=== PATIENT | female | born 1965 | race Caucasian/White ===

== ENCOUNTER → 2018-08-28 | Outpatient (CLI) | payer OTHER ==
[2018-08-28 11:26] LABS: BASOPHILS # (AUTO) 0.04 x10^3/uL (0-0.1); BASOPHILS % (AUTO) 0 % (0-1); EOSINOPHILS # (AUTO) 0.22 x10^3/uL (0-0.4); EOSINOPHILS % (AUTO) 2 % (1-7); LYMPHOCYTES # (AUTO) 2.62 x10^3/uL (1-3.4); LYMPHOCYTES % (AUTO) 26 % (22-44); MD NO; MEAN CORPUSCULAR HEMOGLOBIN 31.1 pg (27.0-34.8); MEAN CORPUSCULAR HGB CONC 34.3 g/dL (32.4-35.8); MEAN CORPUSCULAR VOLUME 90.7 fL (80-100); MEAN PLATELET VOLUME 8.3 fL (7.4-10.4); MONOCYTES # (AUTO) 0.51 x10^3/uL (0.2-0.8); MONOCYTES % (AUTO) 5 % (2-9); NEUTROPHILS # (AUTO) 6.54 x10^3/uL (1.8-6.8); NEUTROPHILS % (AUTO) 66 % (42-75); PLATELET COUNT 244 x10^3/uL (130-400); RED BLOOD COUNT 4.81 x10^6/uL (3.82-5.3); RED CELL DISTRIBUTION WIDTH 14.5 % (9.6-15.2)
[2018-08-28 11:38] LABS: ALBUMIN 4.1 g/dL (3.4-5.0); ANION GAP 10 mmol/L (5-15); CALCIUM 10.1 mg/dL (8.5-10.1); CHLORIDE 103 mmol/L (98-107)
[2018-08-28 11:49] LABS: ALANINE AMINOTRANSFERASE 53 U/L (12-78); ALKALINE PHOSPHATASE 67 U/L (45-117); BILIRUBIN,TOTAL 0.8 mg/dL (0.2-1.0); CHOL/HDL RATIO 3.4; CHOLESTEROL, TOTAL 182 mg/dL (140-239); CREATININE 1.23 mg/dL (0.55-1.02); FREE T4 (FREE THYROXINE) 1.03 ng/dL (0.76-1.46); HDL CHOL % 30 % (28-40); HDL CHOLESTEROL (DIRECT) 54 mg/dL (40-60); HIGH-SENSITIVITY CRP 0.99 mg/dL (0.02-0.30); TOTAL PROTEIN 8.2 g/dL (6.4-8.2); TRIGLYCERIDES 444 mg/dL (50-200)
[2018-08-28 12:16] LABS: HEMOGLOBIN A1C 6.5 % (4.2-6.3)
== END | disposition home or self-care (01) ==
LOC: LAB 11:01
PROVIDERS: ATTEND Nurse Practitioner Family
DX: E78.5 Hyperlipidemia, unspecified (principal); I10 Essential (primary) hypertension; E03.9 Hypothyroidism, unspecified
CPT/HCPCS: 36415; 80053; 80061; 82043; 83036; 84439; 84443; 84481; 85025; 86141; 86376; 86800

== ENCOUNTER → 2018-09-25 | Outpatient (CLI) | payer OTHER | END | disposition home or self-care (01) | LOC: CFH 12:14 | PROVIDERS: ATTEND Family Medicine | DX: M16.0 Bilateral primary osteoarthritis of hip (principal) | CPT/HCPCS: 72190 ==

== ENCOUNTER → 2018-10-11 | Outpatient (CLI) | payer OTHER | END | disposition home or self-care (01) | LOC: CFH 12:53 | PROVIDERS: ATTEND Family Medicine | DX: Z12.39 Encounter for other screening for malignant neoplasm of breast (principal); R92.8 Other abnormal and inconclusive findings on diagnostic imaging of breast; R23.4 Changes in skin texture; R60.0 Localized edema | CPT/HCPCS: 76642; 77066; G0279 ==

== ENCOUNTER → 2018-10-22 | Outpatient (CLI) | payer OTHER | END | disposition home or self-care (01) | LOC: CVU 13:25 | PROVIDERS: ATTEND Family Medicine | DX: R68.89 Other general symptoms and signs (principal); E11.9 Type 2 diabetes mellitus without complications; E78.5 Hyperlipidemia, unspecified | CPT/HCPCS: 93922 ==

== ENCOUNTER 2019-04-16 06:01 | Inpatient (IN) | payer OTHER ==
[~2019-04-16] VITALS: Ht 160 cm; Wt 137.5 kg
[~2019-04-16 06:01] MED LIST: ALLO100T30 PO; ATOR10TA9 PO; CETI10TA18 PO; FA/V1CAP2 PO; FLUO10CA13 PO; GABA300C10 PO; GABA600T7 PO; HYDR12.517 PO; HYDR25TA6 PO; IBUP200T49 PO; LEVO125T PO; LEVO500T47 PO; LISI-170 PO; LORA10TA41 PO; NITR100C56 PO
[2019-04-16] MEDS ORDERED: LACTATED RINGERS 1,000 ML IV SCH (06:38)
[2019-04-16] MEDS ORDERED: LIDOCAINE-MPF 1%, 2ML ONE (06:41)
[2019-04-16] MEDS ORDERED: BUPIVACAINE/PF 0.25% ONE ×2 (06:52→11:36)
[2019-04-16] MEDS ORDERED: EPINEPHRINE 1 MG/ML, 1ML ONE (06:53)
[2019-04-16] MEDS ORDERED: INDIGO CARMINE 0.8%, 5ML ONE (06:53)
[2019-04-16] MEDS ORDERED: THROMBIN 5,000 UNIT VIAL TP ONE (06:53)
[2019-04-16] MEDS ORDERED: LIDOCAINE-MPF 1%, 2ML INFIL ONE (07:00)
[2019-04-16] MEDS ORDERED: MIDAZOLAM 1 MG/ML, 2ML ONE (07:18)
[2019-04-16] MEDS ORDERED: FENTANYL PF 250 MCG/5ML ONE ×2 (07:18→08:37)
[2019-04-16] MEDS ORDERED: GABA100C PO ×2 (07:26)
[2019-04-16] MEDS ORDERED: ROSU10TA2 PO (07:26)
[2019-04-16] MEDS ORDERED: MULT-257 PO (07:26)
[2019-04-16] MEDS ORDERED: LABETALOL 5MG/ML, 20ML IV PRN (07:30)
[2019-04-16] MEDS ORDERED: LORazepam 2 MG/ML, 1ML IVPush PRN (07:30)
[2019-04-16] MEDS ORDERED: hydrALAzine 20 MG/ML, 1ML IV PRN (07:30)
[2019-04-16] MEDS ORDERED: ONDANSETRON ODT 8 MG PO PRN (07:30)
[2019-04-16] MEDS ORDERED: OXYcodone 5 MG/5 ML ORAL.SOL UDC PO PRN (07:30)
[2019-04-16] MEDS ORDERED: ONDANSETRON 2MG/ML, 2ML IV PRN ×2 (07:30→15:30)
[2019-04-16] MEDS ORDERED: PROMETHAZINE 25 MG/ML, 1ML IV PRN (07:30)
[2019-04-16] MEDS ORDERED: ACETAMINOPHEN 325 MG TABLET PO PRN (07:30)
[2019-04-16] MEDS ORDERED: FENTANYL PF 100 MCG/2ML IV PRN (07:30)
[2019-04-16] MEDS ORDERED: AMPICILLIN/SULBACTAM 3 GM ONE (07:33)
[2019-04-16] MEDS ORDERED: CEFAZOLIN 1,000 MG ONE (08:37)
[2019-04-16] MEDS ORDERED: GLYCOPYRROLATE 0.2MG/1ML, 5ML ONE (08:37)
[2019-04-16] MEDS ORDERED: PROPOFOL 10 MG/ML, 20ML ONE (08:37)
[2019-04-16] MEDS ORDERED: ROCURONIUM 10MG/ML,5ML ONE (08:37)
[2019-04-16] MEDS ORDERED: DEXAMETHASONE 4 MG/ML, 1ML ONE (08:37)
[2019-04-16] MEDS ORDERED: SUCCINYLCHOLINE 20 MG/ML, 10ML ONE (08:37)
[2019-04-16] MEDS ORDERED: NEOSTIGMINE 1 MG/ML, 10ML ONE (08:37)
[2019-04-16] MEDS ORDERED: ONDANSETRON 2MG/ML, 2ML ONE (08:37)
[2019-04-16] MEDS ORDERED: FENTANYL PF 100 MCG/2ML ONE (10:44)
[2019-04-16] MEDS ORDERED: SUGAMMADEX 200 MG/2 ML IVPush ONE ×2 (11:07)
[2019-04-16] MEDS: HYDROmorphone 2 MG/ML, 1ML IVPush PRN ×3 (12:36→13:02)
[2019-04-16] MEDS ORDERED: HYDROmorphone 1 MG/ML, 1ML VIAL ONE (12:36)
[2019-04-16] MEDS ORDERED: APIXABAN 5 MG TABLET PO ONE (14:30)
[2019-04-16 14:46] VITALS: BP 128/82
[2019-04-16 14:47] LABS: ANION GAP 11 mmol/L (5-15); CALCIUM 9.5 mg/dL (8.5-10.1); CHLORIDE 105 mmol/L (98-107); CREATININE 1.43 mg/dL (0.55-1.02)
[2019-04-16] MEDS ORDERED: HYDROmorphone 1 MG/ML, 1ML INJ IV PRN (15:30)
[2019-04-16] MEDS: OXYcodone IR 5MG TABLET PO PRN (16:08)
[2019-04-16] MEDS: ACETAMINOPHEN 500 MG TABLET PO SCH ×2 (16:08→23:32)
[2019-04-16] MEDS: D5%-LACTATED RINGERS 1,000 ML IV SCH ×2 (16:08→23:32)
[2019-04-16 19:23] VITALS: BP 118/78
[2019-04-16] MEDS: GABAPENTIN 300 MG CAPSULE PO SCH (21:10)
[2019-04-16 23:32] VITALS: BP 121/79
[2019-04-17 04:08] VITALS: BP 126/80
[2019-04-17] MEDS: LEVOTHYROXINE 125 MCG TABLET PO SCH (05:41)
[2019-04-17 05:49] LABS: CHLORIDE 102 mmol/L (98-107)
[2019-04-17 05:53] LABS: ANION GAP 9 mmol/L (5-15); CALCIUM 9.3 mg/dL (8.5-10.1); CREATININE 1.27 mg/dL (0.55-1.02)
[2019-04-17 07:33] VITALS: BP 156/81
[2019-04-17] MEDS: D5%-LACTATED RINGERS 1,000 ML IV SCH ×2 (07:45→16:18)
[2019-04-17] MEDS: HYDROCHLOROTHIAZIDE 25 MG TABLET PO SCH (08:28)
[2019-04-17] MEDS: ACETAMINOPHEN 500 MG TABLET PO SCH ×3 (08:28→23:30)
[2019-04-17] MEDS: FLUOXETINE HCL 20 MG CAPSULE PO SCH (08:28)
[2019-04-17] MEDS: ALLOPURINOL 100 MG TABLET PO SCH (08:28)
[2019-04-17] MEDS: LISINOPRIL 10 MG TABLET PO SCH (08:28)
[2019-04-17] MEDS: GABAPENTIN 100 MG CAPSULE PO SCH (08:28)
[2019-04-17] MEDS: OXYcodone IR 5MG TABLET PO PRN ×4 (08:28→21:23)
[2019-04-17 20:09] VITALS: BP 97/64
[2019-04-17] MEDS: GABAPENTIN 300 MG CAPSULE PO SCH (21:23)
[2019-04-18] MEDS: D5%-LACTATED RINGERS 1,000 ML IV SCH (00:20)
[2019-04-18 02:02] VITALS: BP 102/69
[2019-04-18] MEDS: OXYcodone IR 5MG TABLET PO PRN ×3 (03:15→20:54)
[2019-04-18] MEDS: LEVOTHYROXINE 125 MCG TABLET PO SCH (06:24)
[2019-04-18 07:29] VITALS: BP 111/68
[2019-04-18] MEDS ORDERED: FUROSEMIDE 20 MG/2 ML IV SCH (07:30)
[2019-04-18] MEDS: LISINOPRIL 10 MG TABLET PO SCH (07:46)
[2019-04-18] MEDS: HYDROCHLOROTHIAZIDE 25 MG TABLET PO SCH (07:46)
[2019-04-18] MEDS: ACETAMINOPHEN 500 MG TABLET PO SCH ×3 (07:46→23:30)
[2019-04-18] MEDS: GABAPENTIN 100 MG CAPSULE PO SCH (07:47)
[2019-04-18] MEDS: FLUOXETINE HCL 20 MG CAPSULE PO SCH (07:47)
[2019-04-18] MEDS: ALLOPURINOL 100 MG TABLET PO SCH (07:47)
[2019-04-18 15:02] VITALS: BP 100/61
[2019-04-18 16:38] LABS: ANION GAP 7 mmol/L (5-15); CALCIUM 8.6 mg/dL (8.5-10.1); CHLORIDE 101 mmol/L (98-107); CREATININE 1.29 mg/dL (0.55-1.02)
[2019-04-18 19:30] VITALS: BP 97/62
[2019-04-18] MEDS: GABAPENTIN 300 MG CAPSULE PO SCH (20:39)
[2019-04-19 01:56] VITALS: BP 114/72
[2019-04-19] MEDS: OXYcodone IR 5MG TABLET PO PRN ×2 (04:07→11:55)
[2019-04-19] MEDS: LEVOTHYROXINE 125 MCG TABLET PO SCH (06:33)
[2019-04-19 08:00] VITALS: BP 115/71
[2019-04-19] MEDS: ACETAMINOPHEN 500 MG TABLET PO SCH (08:25)
[2019-04-19] MEDS: GABAPENTIN 100 MG CAPSULE PO SCH (08:25)
[2019-04-19] MEDS: ALLOPURINOL 100 MG TABLET PO SCH (08:26)
[2019-04-19] MEDS: LISINOPRIL 10 MG TABLET PO SCH (08:26)
[2019-04-19] MEDS: HYDROCHLOROTHIAZIDE 25 MG TABLET PO SCH (08:26)
[2019-04-19] MEDS: FLUOXETINE HCL 20 MG CAPSULE PO SCH (08:26)
[2019-04-19 13:56] VITALS: BP 97/66
[2019-04-19] MEDS ORDERED: DOCU-131 PO (14:35)
[2019-04-19] MEDS ORDERED: OXYC5TAB3 PO (15:56)
== END 2019-04-19 16:10 | disposition home or self-care (01) | DRG 660 ==
LOC: ORIP 06:01 → EDSTATUS 07:30 → 4NE 14:39 → DCLOUNGE 04-19 16:05
PROVIDERS: ADMIT Urology; ATTEND Urology
PROC: 8E0W4CZ Robotic Assisted Procedure of Trunk Region, Percutaneous Endoscopic Approach (ICD-10-PCS; 2019-04-16)
PROC: 0TP5X0Z Removal of Drainage Device from Kidney, External Approach (ICD-10-PCS; 2019-04-16)
PROC: 0TB14ZZ Excision of Left Kidney, Percutaneous Endoscopic Approach (ICD-10-PCS; principal; 2019-04-16 07:30)
DX: N13.6 Pyonephrosis (principal); Z68.43 Body mass index [BMI] 50.0-59.9, adult; I10 Essential (primary) hypertension; E66.01 Morbid (severe) obesity due to excess calories; G89.29 Other chronic pain; E78.5 Hyperlipidemia, unspecified; Z93.6 Other artificial openings of urinary tract status
CPT/HCPCS: 36415; J3490; J7121; 80048; 85014; 85018; 86850; 86900; 88307; 93005; C1729; G0378; J0171; J0295; J0690; J1100; J1170; J2250; J2405; J2704; J2710; J3010; C1760; J0330; J1940; J7120

== ENCOUNTER → 2019-06-05 | Outpatient (CLI) | payer OTHER ==
[~2019-06-05] MED LIST changes: +DOCU-131 PO; +GABA100C PO; +MULT-257 PO; +OXYC5TAB3 PO; +ROSU10TA2 PO
[2019-06-05 10:41] LABS: CREATININE 1.25 mg/dL (0.55-1.02)
== END | disposition home or self-care (01) ==
LOC: RAD 09:57
PROVIDERS: ATTEND Family Medicine
DX: K76.9 Liver disease, unspecified (principal); R16.0 Hepatomegaly, not elsewhere classified; M47.816 Spondylosis without myelopathy or radiculopathy, lumbar region; E11.9 Type 2 diabetes mellitus without complications; Z90.5 Acquired absence of kidney
CPT/HCPCS: 36415; 74160; 82565

== ENCOUNTER → 2019-07-17 | Outpatient (CLI) | payer OTHER ==
[2019-07-17 11:27] LABS: BASOPHILS # (AUTO) 0.05 x10^3/uL (0-0.1); BASOPHILS % (AUTO) 1 % (0-1); EOSINOPHILS # (AUTO) 0.22 x10^3/uL (0-0.4); EOSINOPHILS % (AUTO) 3 % (1-7); LYMPHOCYTES # (AUTO) 2.31 x10^3/uL (1-3.4); LYMPHOCYTES % (AUTO) 29 % (22-44); MD NO; MEAN CORPUSCULAR HEMOGLOBIN 29.8 pg (27.0-34.8); MEAN CORPUSCULAR HGB CONC 33.6 g/dL (32.4-35.8); MEAN CORPUSCULAR VOLUME 88.9 fL (80-100); MEAN PLATELET VOLUME 8.3 fL (7.4-10.4); MICROSCOPIC NOT IND; MONOCYTES % (AUTO) 5 % (2-9); NEUTROPHILS # (AUTO) 4.93 x10^3/uL (1.8-6.8); NEUTROPHILS % (AUTO) 62 % (42-75); PLATELET COUNT 240 x10^3/uL (130-400); RED BLOOD COUNT 4.94 x10^6/uL (3.82-5.3); RED CELL DISTRIBUTION WIDTH 14.4 % (9.6-15.2)
[2019-07-17 11:39] LABS: ALBUMIN 4.1 g/dL (3.4-5.0); ANION GAP 9 mmol/L (5-15); CALCIUM 9.9 mg/dL (8.5-10.1); CHLORIDE 108 mmol/L (98-107); CHOLESTEROL, TOTAL 190 mg/dL (140-239); CREATININE 1.34 mg/dL (0.55-1.02)
[2019-07-17 11:41] LABS: CHOL/HDL RATIO 4.4; HDL CHOL % 23 % (28-40); HDL CHOLESTEROL (DIRECT) 43 mg/dL (40-60); TRIGLYCERIDES 494 mg/dL (50-200)
[2019-07-17 11:56] LABS: CALCIUM 9.9 mg/dL (8.5-10.1)
[2019-07-17 13:33] LABS: ANION GAP 13 mmol/L (5-15); CALCIUM 10.2 mg/dL (8.5-10.1); CHLORIDE 109 mmol/L (98-107); CREATININE 1.31 mg/dL (0.55-1.02)
== END | disposition home or self-care (01) ==
LOC: LAB 11:01
PROVIDERS: ATTEND Urology
DX: I12.9 Hypertensive chronic kidney disease with stage 1 through stage 4 chronic kidney disease, or unspecified chronic kidney disease (principal); E11.22 Type 2 diabetes mellitus with diabetic chronic kidney disease; N18.3 Chronic kidney disease, stage 3 (moderate); Q60.0 Renal agenesis, unilateral
CPT/HCPCS: 36415; 80048; 80061; 80069; 81003; 82043; 82306; 82310; 82570; 83036; 83735; 83970; 84156; 84550; 85025

== ENCOUNTER 2020-01-02 10:54 | Outpatient (CLI) | payer OTHER ==
[2020-01-02 11:28] LABS: BASOPHILS # (AUTO) 0.05 x10^3/uL (0-0.1); BASOPHILS % (AUTO) 1 % (0-1); EOSINOPHILS % (AUTO) 3 % (1-7); LYMPHOCYTES # (AUTO) 2.15 x10^3/uL (1-3.4); LYMPHOCYTES % (AUTO) 29 % (22-44); MD NO; MEAN CORPUSCULAR HEMOGLOBIN 29.8 pg (27.0-34.8); MEAN CORPUSCULAR HGB CONC 32.7 g/dL (32.4-35.8); MEAN PLATELET VOLUME 8.4 fL (7.4-10.4); MONOCYTES # (AUTO) 0.41 x10^3/uL (0.2-0.8); MONOCYTES % (AUTO) 6 % (2-9); NEUTROPHILS # (AUTO) 4.73 x10^3/uL (1.8-6.8); NEUTROPHILS % (AUTO) 63 % (42-75); PLATELET COUNT 217 x10^3/uL (130-400); RED BLOOD COUNT 4.86 x10^6/uL (3.82-5.3); RED CELL DISTRIBUTION WIDTH 13.9 % (9.6-15.2)
[2020-01-02 11:34] LABS: CALCIUM 10.8 mg/dL (8.5-10.1)
[2020-01-02 11:35] LABS: MICROSCOPIC NOT IND
[2020-01-02 11:48] LABS: ALBUMIN 4.5 g/dL (3.4-5.0); ANION GAP 8 mmol/L (5-15); CALCIUM 10.1 mg/dL (8.5-10.1); CHLORIDE 108 mmol/L (98-107); CHOLESTEROL, TOTAL 175 mg/dL (140-239); CREATININE 1.26 mg/dL (0.55-1.02)
[2020-01-02 11:51] LABS: CHOL/HDL RATIO 3.7; HDL CHOL % 27 % (28-40); HDL CHOLESTEROL (DIRECT) 47 mg/dL (40-60); LDL CHOLESTEROL,CALCULATED 55 mg/dL (54-169); LDL/HDL RATIO 1.2 (0.5-3.0); TRIGLYCERIDES 366 mg/dL (50-200); VLDL CHOLESTEROL 73 mg/dL (0-25)
== END 2020-01-02 23:59 | disposition home or self-care (01) ==
LOC: LAB 10:54
PROVIDERS: ATTEND Internal Medicine Nephrology
DX: I12.9 Hypertensive chronic kidney disease with stage 1 through stage 4 chronic kidney disease, or unspecified chronic kidney disease (principal); N18.3 Chronic kidney disease, stage 3 (moderate); E11.22 Type 2 diabetes mellitus with diabetic chronic kidney disease; Q60.0 Renal agenesis, unilateral
CPT/HCPCS: 36415; 80061; 80069; 81003; 82043; 82306; 82310; 82570; 83036; 83735; 83970; 84550; 85025